=== PATIENT | female | born 1995 | race African-American/Black ===

== ENCOUNTER 2023-09-09 21:11 | Emergency (ER) | payer SELFPAY ==
[2023-09-09 21:09] VITALS: BP 118/75; PULSE 71; RESP 18; TEMP 36.6; O2SAT 100
[2023-09-09 22:30] LABS: Basophils Absolute Auto 0.1 K/mm3 (0.0-0.1); Basophils Percent Auto 1.3 % (0.2-1.2); Eosinophils Absolute Auto 0.1 K/mm3 (0-0.3); Eosinophils Percent Auto 1.6 % (0-4.4); Hematocrit 36.1 % (37.0-47.0); Hemoglobin 12.1 g/dL (12.0-15.0); Immature Granulocyte Absolute 0.01 K/mm3 (0.00-0.031); Immature Granulocyte Percent A 0.1 % (0-0.5); Lymphocytes Absolute Auto 3.21 K/mm3 (0.9-3.2); Lymphocytes Percent Auto 42.5 % (18.3-44.2); Mean Corpuscular HGB Conc 33.5 g/dl (32-36); Mean Corpuscular Hemoglobin 27.6 pg (26-34); Mean Corpuscular Volume 82.2 fl (80-100); Mean Platelet Volume 10.7 fl (7.4-10.4); Monocytes Absolute Auto 0.4 K/mm3 (0.1-0.6); Monocytes Percent Auto 5.4 % (2.6-8.5); Neutrophils Absolute Auto 3.7 K/mm3 (1.3-6.7); Neutrophils Percent Auto 49.1 % (45.5-73.1); Platelet Count Result 289 k/mm3 (150-375); Red Blood Count 4.39 M/mm3 (4.2-5.4); Red Cell Distribution Width 14.7 % (11.5-14.5); White Blood Count 7.6 K/mm3 (4.5-10.0)
[2023-09-09] MEDS: SODIUM CHLORIDE 0.9% IV 2,000 ML 999 ML IV CONT (22:36)
[2023-09-09] MEDS: ONDANSETRON INJ 4 MG/2 ML VIAL IV PUSH (22:37)
[2023-09-09 22:46] LABS: Ethanol 224 mg/dL (<10)
--- NOTE | 2023-09-09 22:52 | PC.NURSE ---
Patient resting at this time. breathing even and non labored. Patient will wake to verbal stimulation. patient able to follow some commands.
--- NOTE | 2023-09-09 22:57 | PC.NURSE ---
Report from LEOBARDO Barth
[2023-09-09 23:00] VITALS: BP 110/64; PULSE 77; RESP 14; O2SAT 98
[2023-09-09 23:18] LABS: Appearance Urine Cloudy (Clear); Bacteria Urine None Seen /hpf; Bilirubin Urine Negative (Negative); Blood Urine Negative (Negative); Color Urine Yellow (Yellow); Glucose Urine UA Negative (Negative); Ketones Urine Negative (Negative); Leukocyte Esterase Ur Negative LEU/UL (Negative); Nitrate Urine Negative (Negative); Non Pathogenic Casts 0-2; Protein Urine Negative (Negative); RBC Urine 0-2 /hpf (0-2); Specific Grav Ur 1.005 (1.001-1.035); Squamous Epithelial Cell Urine None seen /hpf (Few); Urobilinogen Urine 0.2 mg/dL (<2.0); WBC Urine 0-5 /hpf
[2023-09-09 23:20] LABS: Add Urine Microscopic? YES
[2023-09-09 23:32] LABS: Barbiturate Screen Urine Negative (Negative); Benzodiazepines Screen Urine Negative (Negative)
--- NOTE | 2023-09-10 00:08 | PC.NURSE ---
Green top redrawn.
[2023-09-10 00:33] LABS: Amphetamine Screen Urine Negative (Negative); Cannabinoid Screen Urine Positive (Negative); Cocaine Screen Urine Negative (Negative); Methadone Screen Urine Negative (Negative); Opiate Screen Urine Negative (Negative); Phencyclidine Screen Urine Negative (Negative)
[2023-09-10 01:05] LABS: Alanine Aminotransferase 13 U/L (6-35); Alkaline Phosphatase 68 U/L (38-126); Anion Gap 8 mmol/L (8-16); Aspartate Amino Transferase 22 U/L (14-36); Bilirubin,Total 0.3 mg/dL (0.2-1.3); Blood Urea Nitrogen 7 mg/dL (7-17); Carbon Dioxide 24 mmol/L (22-30); Chloride 108 mmol/L (98-107); Estimated CRCL calculation 96 ml/min; Estimated Glomerular Filt Rate > 60; Glucose 87 mg/dL (65-110); Potassium 3.7 mmol/L (3.4-5.0); Sodium 140 mmol/L (137-145)
--- NOTE | 2023-09-10 02:35 | PC.NURSE ---
Pt continues to sleep, equal rise and fall of chest.
--- NOTE | 2023-09-10 03:09 | PC.NURSE ---
Pt awake and clinically sober. Asked for me to call her mom for her. Mom states will come pick her up.
--- NOTE | 2023-09-10 03:14 | ED.ALCOHOL ---
HPI - Alcohol General Chief Complaint: Alcohol Stated Complaint: ETOH, NAUSEA, DRY HEAVING Time Seen by Provider: 09/09/23 21:55 Source: patient Mode of arrival: ambulatory Limitations: no limitations History of Present Illness HPI narrative: 28-year-old female arrives via EMS from home. Patient was out drinking tonight came home vomited and went to sleep mom was concerned and called 911. Patient arrives she is responding to painful stimulus and answering some questions but refused to stay awake and hold a conversation. complaint: alcohol intoxication Related Data Allergies Allergy/AdvReac Type Severity Reaction Status Date / Time No Known Allergies Allergy Verified 09/09/23 22:39 Review of Systems Review of Systems: All systems reviewed & are unremarkable except as noted in HPI and below Exam Const: Other: Patient alert awakes to painful stimuli and will answer short questions. Resp: Effort & Inspection: normal respiratory effort Auscultation: clear to auscultation bilaterally Cardio: Rate: regular rate Rhythm: regular rhythm Course Course Emergency Course: Patient is alert and oriented x4 at this time 0 3:16 AM. Up stable on feet. Called mom for a ride home. Patient is clinically sober. Vital Signs Vital signs: Vital Signs Temperature 97.9 F 09/09/23 21:09 Pulse Rate 71 09/09/23 21:09 Respiratory Rate 18 09/09/23 21:09 Blood Pressure 118/75 09/09/23 21:09 Pulse Oximetry 100 09/09/23 21:09 Oxygen Delivery Room Air 09/09/23 21:09 Temperature 97.9 F 09/09/23 21:09 Pulse Rate 74 09/10/23 04:12 Respiratory Rate 14 09/10/23 04:12 Blood Pressure 109/66 09/10/23 04:12 Pulse Oximetry 98 09/10/23 04:12 Oxygen Delivery Room Air 09/09/23 21:09 MDM - Alcohol MDM Narrative Medical decision making narrative: 28-year-old female HPI as noted. Work-up to include CBC, CMP, urine, drug screen, EtOH, will give IV fluids and Zofran. CBC and CMP without concerning findings urine positive for cannabinoids. No sign of UTI. Blood alcohol level 224. Patient was given IV fluids and Zofran. After a couple hours patient is alert and oriented x4 up and about stable on feet ready to go home. Patient called mom who will take responsibility. Patient be discharged home. Medical Records Attestation: I reviewed the patient's medical records. Lab Data Attestation: I reviewed the patient's lab results. 09/09/23 22:12 09/10/23 00:01 Labs: Lab Results 09/09/23 09/09/23 09/10/23 Range/Units 22:12 23:04 00:01 WBC 7.6 (4.5-10.0) K/mm3 RBC 4.39 (4.2-5.4) M/mm3 Hgb 12.1 (12.0-15.0) g/dL Hct 36.1 L (37.0-47.0) % MCV 82.2 (80-100) fl MCH 27.6 (26-34) pg MCHC 33.5 (32-36) g/dl RDW 14.7 H (11.5-14.5) % Plt Count 289 (150-375) k/mm3 MPV 10.7 H (7.4-10.4) fl Immature Gran % (Auto) 0.1 (0-0.5) % Neut % (Auto) 49.1 (45.5-73.1) % Lymph % (Auto) 42.5 (18.3-44.2) % Robertson % (Auto) 5.4 (2.6-8.5) % Eos % (Auto) 1.6 (0-4.4) % Baso % (Auto) 1.3 H (0.2-1.2) % Lymph # (Auto) 3.21 H (0.9-3.2) K/mm3 Robertson # (Auto) 0.4 (0.1-0.6) K/mm3 Eos # (Auto) 0.1 (0-0.3) K/mm3 Baso # (Auto) 0.1 (0.0-0.1) K/mm3 Abs Immat Gran (auto) 0.01 (0.00-0.031) K/mm3 Absolute Neuts (auto) 3.7 (1.3-6.7) K/mm3 Absolute Nucleated RBC 0.0 (0.0-0.012) K/mm3 Nucleated RBC % 0.0 (0.0-0.2) % Sodium 140 (137-145) mmol/L Potassium 3.7 (3.4-5.0) mmol/L Chloride 108 H (98-107) mmol/L Carbon Dioxide 24 (22-30) mmol/L Anion Gap 8 (8-16) mmol/L BUN 7 (7-17) mg/dL Creatinine 0.60 L (0.7-1.0) mg/dL Estim Creat Clear Calc 96 ml/min Estimated GFR > 60 (59 - ) Glucose 87 (65-110) mg/dL Calcium 8.0 L (8.4-10.2) mg/dL Total Bilirubin 0.3 (0.2-1.3) mg/dL AST 22 (14-36) U/L ALT 13 (6-35) U/L Alkaline Phosphatase 68 (
--- NOTE | 2023-09-10 04:10 | PC.NURSE ---
Mother here to sweet pickle maker pt. Pt dressed and ambulatory with steady gait to waiting room.
[2023-09-10 04:12] VITALS: BP 109/66; PULSE 74; RESP 14; O2SAT 98
== END 2023-09-10 04:16 | disposition home or self-care (01) ==
PROVIDERS: Emergency Provider Nurse Practitioner Family
DX: F10.129 Alcohol abuse with intoxication, unspecified (principal); Y90.7 Blood alcohol level of 200-239 mg/100 ml
CPT/HCPCS: 36415; 80053; 80307; 81001; 85025; 96361; 96374; 99284; J2405; J7030

== ENCOUNTER 2025-07-14 11:10 | Emergency (ER) | payer OTHER, SELFPAY ==
[2025-07-14 11:34] VITALS: BP 116/73; PULSE 81; RESP 16; TEMP 36.6; O2SAT 100
--- NOTE | 2025-07-14 11:58 | ED_ITS ---
HPI - Female Genitourinary General Chief complaint: Urogenital-Female Stated complaint: UTI SYMPTOMS Time Seen by Provider: 07/14/25 11:58 Source: patient Mode of arrival: ambulatory Limitations: no limitations History of Present Illness HPI Narrative: 30-year-old female presents with complaint of suprapubic pain, urinary urgency, dysuria for 5 days. Afebrile. No fever, chills or nausea. Denies concern for . All systems reviewed and negative except as noted above. Related Data Home Medications ?Medication ?Instructions ?Recorded ?Confirmed ?Last Taken ?Type estradiol-dienogest 3 mg/2 mg-2 tablet 07/14/25 Unknown History mg/2 mg-3 mg/1 mg tablet (Natazia) Allergies Allergy/AdvReac Type Severity Reaction Status Date / Time No Known Allergies Allergy Verified 07/14/25 11:22 PMFSH Comments At time of signature, agree with nursing past medical, surgical, social and family history. There is no relevant family history pertinent to the presenting complaint. Exam Narrative: GENERAL: This is a well-nourished, well-developed patient, in no apparent distress. HEAD: normocephalic, atraumatic. EYES: PERRL. Sclera clear/white. Vision is grossly intact. EARS: External ears normal NOSE: External nose normal NECK: Neck supple, non-tender without lymphadenopathy, masses or thyromegaly. CARDIOVASCULAR: Regular rate and rhythm without murmurs, gallops, or rubs. RESPIRATORY: Clear to auscultation. Breath sounds equal bilaterally. No wheezes, rales, or rhonchi. SKIN: warm, Dry, intact with no suspicious lesions or rash, good texture and turgor. NEURO: awake, alert, and oriented to person, place and time. There were no obvious focal neurologic abnormalities. EXTREMITIES: No joint tenderness, effusion, or edema noted. Course Course Level of Care: Express Care Visit Vital Signs Vital signs: Vital Signs Temperature 36.6 C 07/14/25 11:34 Pulse Rate 81 07/14/25 11:34 Respiratory Rate 07/14/25 11:34 Blood Pressure 116/73 07/14/25 11:34 Pulse Oximetry 100 07/14/25 11:34 Temperature 36.6 C 07/14/25 11:34 Pulse Rate 81 07/14/25 11:34 Respiratory Rate 16 07/14/25 11:34 Blood Pressure 116/73 07/14/25 11:34 Pulse Oximetry 100 07/14/25 11:34 Reviewed MDM - Female Genitourinary MDM Narrative Medical decision making narrative: Will treat with antibiotic for urinary tract infection. Patient is well- appearing, nontoxic. Agrees with plan of care. Differential Diagnosis Differential diagnosis: Likely urinary tract infection Discharge Plan Discharge Clinical Impression: Urinary tract infection Patient Disposition: Home Condition: Stable Instructions: Antibiotic Form, Urinary Tract Infection in Women (ED) Additional Instructions: Take antibiotic as prescribed until gone. May take sred-svy-nioyzep azo as directed on packaging to treat urinary symptoms. Drink at least 64 oz of water a day. See your doctor if symptoms are not improving. If you have severe pain, fever, vomiting go to the ER. Patient Language: Sami Prescriptions: New amoxicillin-pot clavulanate [Augmentin] 500-125 mg tablet 1 tablet PO BID 5 Days Qty: 10 0RF No Action Natazia 3 mg/2 mg-2 mg/ 2 mg-3 mg/1 mg tablet Follow-up/Referrals: PHYSICIAN,ORTHODONTIST SMALL BUSINESS OWNER [Primary Care Provider] - Time of Disposition: 12:00
[2025-07-14 12:08] LABS: EDUAAPPEAR Clear; EDUABILI Negative (Negative); EDUABLOOD 1+ (Negative); EDUACOLOR1 Dark; EDUAGLUCOSE Negative (Negative); EDUAKETONE 2+ (Negative); EDUALEUKO 1+ (Negative); EDUANITRATE Negative (Negative); EDUAPH 6.0; EDUAPROTEIN 1+ (Negative); EDUASPGRAVITY 1.025; EDUAUROBILI 0.2
== END 2025-07-14 12:02 | disposition home or self-care (01) ==
PROVIDERS: Emergency Provider Nurse Practitioner Family
DX: N39.0 Urinary tract infection, site not specified (principal)
CPT/HCPCS: 81003; 87086; 99213; G0463

== ENCOUNTER 2025-07-15 23:35 | Emergency (ER) | payer OTHER, SELFPAY ==
[2025-07-15 23:35] VITALS: BP 124/76; PULSE 106; RESP 16; TEMP 36.8; O2SAT 99
--- OUTSIDE RECORDS SUMMARY | 2025-07-15 23:36 | XMS_ITS | Clinical Summary ---
Author Organization [facility] Address [address] [place] [address] Phone Care Team Providers Care Machine Adjuster Leader Case Trim Name Role Phone Lucia Hernandez Charisse VANN, HOGSHEAD WRECKER Primary Care Provider [phone] Kaye Lima APRN, HOGSHEAD WRECKER Unavailable [phone] Allergies No known active allergies Medications No known medications Active Problems No known active problems Encounters Date Type Department Care Team Description 2025 Results Follow-Up [facility] [address] [place] [address] Kaye Lima APRN, HOGSHEAD WRECKER PATHOLOGY SURGICAL, PATHOLOGY SURGICAL 05/15/2025 8:00 AM CDT Procedure Visit [facility] [address] [place] [id number] Kaye Lima APRN, HOGSHEAD WRECKER Atypical squamous cells cannot exclude high grade squamous intraepithelial lesion on cytologic smear of cervix (ASC-H) (Primary Dx); Former tobacco use Discharge Disposition: Discharged to home or Selfcare 05/15/2025 Travel 05/02/2025 Results Follow-Up [facility] [address] [place] [address] Kaye Lima APRN, HOGSHEAD WRECKER HUMAN PAPILLOMA VIRUS (HPV) 05/01/2025 8:30 AM CDT Office Visit [facility] [address] [place] [address] Kaye Lima, ROAD BUILDER, HOGSHEAD WRECKER Encounter for gynecological examination (Primary Dx); Atypical squamous cells cannot exclude high grade squamous intraepithelial lesion on cytologic smear of cervix (ASC-H) Discharge Disposition: Discharged to home or Selfcare 05/01/2025 Travel from Last 3 Months Immunizations Immunization Administration Dates Next Due DTAP VACCINE 08/10/2001, 8,1997,09/13,1997 Human Papillomavirus (HPV) 9 -valent Vaccine 01/25/2025 Meningococcal MCV4O 06/21/2012 Meningococcal Vaccine 09/12/2014 Varicella Vaccine Live 09/12/2014,1998 Social History Tobacco Use Types Packs/Day Years Used Date Smoking Tobacco: Never Passive Smoke Exposure: Never Smokeless Tobacco: Never Tobacco Cessation:Counseling Given: Not Answered Alcohol Use Standard Drinks/Week Comments Yes 0 (1 standard drink = 0.6 oz pur e alcohol) PHQ-2 Answer Date Recorded Total Score - Questions 1-9 0 12/31 Sexually Active Control Partners Comments Not Currently Comments No Sex and Gender Information Value Date Recorded Sex Assigned at Not on file Legal Sex Female 4:00 PM OUTSIDE MACHINIST HELPER Gender Identity Not on file Sexual Orientation Not on file Last Filed Vital Signs Vital Sign Reading Time Taken Comments Blood Pressure 98/63 05/15/2025 8:20 AM CDT Pulse 78 05/15/2025 8:20 AM CDT Temperature 36.1 C (97 F) 01/22/2025 7:54 AM OUTSIDE MACHINIST HELPER Respiratory Rate 18 05/15/2025 8:20 AM CDT Oxygen Saturation 100% 05/15/2025 8:20 AM CDT Inhaled Oxygen Concentration - - Weight 66.7 kg (147 lb) 05/15/2025 8:20 AM CDT Height 157.5 cm (5' 2) 05/15/2025 8:20 AM CDT Body Mass Index 26.89 05/15/2025 8:20 AM CDT Plan of Treatment Health Maintenance Due Date Last Done Comments Hepatitis C Virus (HCV) Screening 1997 DTaP/Tdap/Td Immunization (6 - Tdap) 2008 08/10/2001, 08/27/1998, 1997, Additional history exists Hepatitis B Immunization (1 of 3 - 19+ 3-dose series) 2016 SARS-COV-2 Immunization ( - 2023- season) 2024 Human Papillomavirus (HPV) Immunization (2 - 3-dose SCDM series) 02/22/2025 01/25/2025 Influenza Immunization (#1) 2025 Pap Smear 01/22/2028 01/22/2025 Respiratory Syncytial Virus (RSV) Immunization (Adult) (1 - 1-dose 75+ series) 2072 Meningococcal Immunization (ACWY) Completed 09/12/2014, 06/21/2012 Pneumococcal Immunization Combined Aged Out No longer eligible based on patient's age to complete this topic Rotavirus Immunization Aged Out No lo nger eligible based on patient's age to complete this topic Procedures Procedure Name Priority Date/Time Associated Diagnosis Comments PATHOLOGY SURGICAL Routine 05/15/2025 11 :27 AM CDT Atypical squamous cells cannot exclude high grade squamous intraepithelial lesion on cytologic smear of cervix (ASC-H) PATHOLOGY SURGICAL Routine 05/15/2025 9: 57 AM CDT Atypical squamous cells cannot exclude high grade squamous intraepithelial lesion on cytologic smear of cervix (ASC-H) HUMAN PAPILLOMA VIRUS (HPV) Routine 05/01/2025 9:17 AM CDT Encounter for gynecological examination Atypical squamous cells cannot exclude high grade squamous intraepithelial lesion on cytologic smear of cervix (ASC-H) PATHOLOGY CYTOLOGY SALES REPRESENTATIVE RAW FIBERS Routine 01/22/2025 9:08 AM OUTSIDE MACHINIST HELPER Pap smear, as part of routine gynecological examination from Last 3 Months or Most Recently Relevant to Health Maintenance Results * PATHOLOGY SURGICAL (05/15/2025 11:27 AM CDT) Only the most recent of2 resultswithin the time period is included. Case Report Surgical Pathology Report Case: [id number] Authorizing Provider: Kaye Lima APRN, HOGSHEAD WRECKER Collected: 05/15/2025 09:57 AM Ordering Location: [facility] - Received: 05/15/2025 09:57 AM Obstetrics & Gynecology [facility] Pathologist: Chapis Jett MD PhD Specimens: A) - Cervix/Endocervix B) - Cervix/Endocervix, ECC 2025 3:00 PM CDT [facility] FINAL DIAGNOSIS A. Cervix/endocervix, colposcopy with biopsy: - High-grade squamous intraepithelial lesion (HSIL) (see comment) B. Endocervical curettage: - Small poorly oriented squamous epithelium with dysplasia, cannot rule out high-grade squamous intraepithelial lesion (HSIL) 2025 3:00 PM CDT [facility] at 1500 CDT Comment In both specimens, P16 highlights the neoplasm epithelium. Specimen A also has low-grade squamous intraepithelial lesion. Some nests of lesion cells are present in the stroma, they may represent tangential cut. 2025 3:00 PM CDT [facility] Pre-Operative Diagnosis Atypical squamous cells cannot exclude high grade squamous intraepithelial lesion on cytologic smear of cervix 2025 3:00 PM CDT [facility] Gross Description A. The specimen presents in two formalin containers for gross and microscopic examination labeled with the patient's name, Carmelina Recinos. Part A is designated as cervix colposcopy with biopsy. The specimen consists of several small fragments of dodge-white tissue ranging in size from less 0.1 up to 0.1 cm in total dimensions. The specimen is submitted in its entirety in cassette A1. B. ECC Part B is designated as colposcopy with endocervical curettage. The specimen consists of several small fragments of pink-dodge to mucoid tissue measuring an aggregate of 1.0 x 1.0 x 0.2 cm. The specimen is submitted in its entirety in cassette B1. Total time of fixation is 12 hours, 10 minutes. MH/sb 2025 3:00 PM CDT [facility] Microscopic Description Microscopic examination was performed which supports the final diagnosis. All control tissues stained appropriately. 2025 3:00 PM CDT [facility] Other CERVIX UTERI STRUCTURE / Unknown Non-Phlebotomy Collection / Unknown 05/15/2025 11:27 AM CDT 05/15/2025 11:27 AM CDT Specimen of unknown material (specimen) CERVIX UTERI STRUCTURE / Unknown 05/15/2025 9:57 AM CDT 05/15/2025 9:57 AM CDT us Kaye Lima ROAD BUILDER, HOGSHEAD WRECKER PATHOLOGY/CYTOLOGY ORDER SUMAYA Final Result [facility] [address] [place] [address] * (ABNORMAL) HUMAN PAPILLOMA VIRUS (HPV) (05/01/2025 9:17 AM CDT) HPV TYPE 16 NEGATIVE NEGATIVE 05/02/2025 11:34 AM CDT [facility] Comment: A negative high-risk HPV result does not exclude the possibility of future cytologic HSIL or underlying CIN2-3 or cancer. The presence of PCR inhibitors may cause false negative or invalid results. If concentrations of whole blood in the sample exceed 10% (dark red or brown coloration) in PreservCyt solution, there is a likelihood of obtaining a false-negative result. HPV TYPE 18 NEGATIVE NEGATIVE 05/02/2025 11:34 AM CDT [facility] Comment: A negative high-risk HPV result does not exclude the possibility of future cytologic HSIL or underlying CIN2-3 or cancer. The presence of PCR inhibitors may cause false negative or invalid results. If concentrations of whole blood in the sample exceed 10% (dark red or brown coloration) in PreservCyt solution, there is a likelihood of obtaining a false-negative result. HPV OTHER HIGH RISK TYPES, PCR POSITIVE(A) NEGATIVE 05/02/2025 11:34 AM CDT [facility] Comment: Positive for one or more of the following Other High Risk HPV types: 31, 33, 35, 39, 45, 51, 52, 56, 58, 59, 66, and 68. False-positive results have been reported with molecular assays. If these positive results are discordant with clinical/cytohistologic findings, repeat testing may be considered after an appropriate interval. HPV ORDER BE USED FOR SCREENING OR DIAGNOSTIC DIAGNOSTIC 05/02/2025 11:34 AM CDT [facility] Other Non-Phlebotomy Collection / Unknown 05/01/2025 9:17 AM CDT 05/01/2025 9:17 AM CDT Narrative [facility] - 05/02/2025 11:34 AM CDT This test was performed using NESHA 5800 Real Time PCR. us Kaye Lima ROAD BUILDER, HOGSHEAD WRECKER LAB SEND OUTS Final Re sult [facility] [address] [place] [address], [facility] [address] [place] [address] * PATHOLOGY CYTOLOGY SALES REPRESENTATIVE RAW FIBERS (01/22/2025 9:08 AM OUTSIDE MACHINIST HELPER) SPECIMEN ADEQUACY Satisfactory for evaluation. Endocervical/transf ormation zone component is present. 02/02/2025 10:02 AM [facility] GENERAL CATEGORY EPITHELIAL CELL ABNORMALITY. 02/02/2025 10:02 AM [facility] DESCRIPTIVE DIAGNOSIS Low grade squamous intraepithelial lesion. 02/02/2025 10:02 AM [facility] at 1002 OUTSIDE MACHINIST HELPER OTHER FINDINGS A high grade lesion cannot be excluded. 02/02/2025 10:02 AM [facility] Automated Examination Analysis of this sample has been assisted by an automated imaging and review system ([employer]in[employer] Imaging System, [employer], [place], [place]). This case is further evaluated and finalized by a hide dropper and/or pathologist. 02/02/2025 10:02 AM [facility] Disclaimer The PAP smear is a screening test designed to detect cancerous or precancerous cells of the uterine cervix. It is one of the best means available for detection of cervical cancer but still carries an inherent false-negative rate. The consequences of a false-negative PAP result can be minimized by adhering to current screening guidelines. The following are general guidelines recommended by the ACS, ASCP, ASCCP, and ACOG: PAP testing is recommended every three years for women 21-29, Co-Testing, a PAP test in conjunction with an HPV (Human Papillomavirus) test for women ages 30-65, and no PAP or HPV testing for women under the age of 21 or older than 65 unless clinically indicated. 02/02/2025 10:02 AM OUTSIDE MACHINIST HELPER [facility] Case Report Gynecologic Cytology Report Case: [id number] Authorizing Provider: Lucia Hernandez APRN, CNP Collected: 01/22/2025 09:08 AM Ordering Location: [facility] Received: 01/22/2025 09:08 AM Group - Primary [facility] - [facility] Screen: Debbie Lima Pathologist: Collins Álvarez MD Specimen: TP Screen, Cervix/Vaginal 02/02/2025 10:02 AM OUTSIDE MACHINIST HELPER [facility] Other SPECIMEN FROM CERVIX OR VAGINA / Unknown Non-Phlebotomy Collection / Unknown 01/22/2025 9:08 AM OUTSIDE MACHINIST HELPER 01/22/2025 9:08 AM OUTSIDE MACHINIST HELPER us Lucia Hernandez APRN, CNP PATHOLOGY/CYTOLOGY ORDERAB LES Final Result [facility] [address] [place] [address], [place] from Last 3 Months or Most Recently Relevant to Health Maintenance Insurance MEDICAID [place] Care Teams Machine Adjuster Leader Case Trim Relationship Specialty Start Date End Date Lucia Hernandez APRN, CNP [address] [place] [address] PCP - General Certified Nurse Practitioner 01/29/25 Kaye Lima, ROAD BUILDER, HOGSHEAD WRECKER [address] [place] [address] Nurse Practitioner Advanced Practice Nurse 04/13/25
--- OUTSIDE RECORDS SUMMARY | 2025-07-15 23:36 | XMS_ITS | Continuity of Care Document ---
Author Name Eliza Cano Address [address] [place] [address] Organization Unknown Address [address] [place] [address] Medications No known medications Problems No known problems
--- OUTSIDE RECORDS SUMMARY | 2025-07-15 23:36 | XMS_ITS | Clinical Summary ---
Author Organization [facility] Address [address] [place] [id number] Care Team Providers Care Lead Game Designer Name Role Phone Unknown, Notinfile Primary Care Provider Unavail able Allergies No known active allergies Medications methocarbamoL (ROBAXIN) 500 mg tablet Take 1 tablet (500 mg total) by mouth 2 (two) times a day 20 tablet 06/25/2023 Active Social History Tobacco Use Types Packs/Day Years Used Date Smoking Tobacco: Never Assessed Personal Safety Answer Date Recorded Getting School Help Needed Not on file 07/22 Comments Unknown Sex and Gender Information Value Date Recorded Sex Assigned at Not on file Legal Sex Female 12:15 PM CDT Gender Identity Not on file Sexual Orientation Not on file Last Filed Vital Signs Vital Sign Reading Time Taken Comments Blood Pressure 118/67 06/25/2023 2:55 PM CDT Pulse 79 06/25/2023 2:55 PM CDT Temperature 36.6 C (97.8 F) 06/25/2023 2:55 PM CDT Respiratory Rate 16 06/25/2023 2:55 PM CDT Oxygen Saturation 99% 06/25/2023 2:55 PM CDT Inhaled Oxygen Concentration - - Weight 63.5 kg (140 lb) 06/25/2023 12:51 PM CDT Height 157.5 cm (5' 2) 06/25/2023 12:51 PM CDT Body Mass Index 25.61 06/25/2023 12:51 PM CDT Plan of Treatment Health Maintenance Due Date Last Done Comments Cervical Cancer Screening 1997 Depression Screening 1997 Hepatitis C Screening 1997 Varicella Vaccines (2 of 2 - 2-dose childhood series) 2001 1998 Regular Well Visit/Exam 18-64 2015 HPV Vaccines (1 - 3-dose SCDM series) 2024 Influenza Vaccine (#1) 2025 09/08/2021 DTaP/Tdap/Td Vaccine (8 - Td or Tdap) 07/30/2031 07/30/2021, 06/21/2012, 08/10/2001, Additional history exists Hepatitis B Screening Completed 02/19/1998 , 1997, 1997 Pneumococcal vaccine <65 Aged Out No longer eligible based on patient's age to complete this topic Insurance Care Teams Lead Game Designer Relationship Specialty Start Date End Date Unknown, Notinfile PCP - General 06/25/23
--- OUTSIDE RECORDS SUMMARY | 2025-07-15 23:36 | XMS_ITS | Clinical Summary ---
Author Organization [facility] Address [address] [place] [address] Care Team Providers Care Skin Diver Name Role Phone Unavailable Primary Care Provider Unavailabl e Source Comments [facility],non-owned Affiliates and Associated Physician Practices is amultiple site organization consisting of ambulatory clinics and hospital sitesin [place], [place], [place] and [place]. This disclosure is being madepursuant to the Care Everywhere program and may not contain all information available regarding this patient. Last updated 18.[facility] Encounters Date Type Department Care Team Description 06/26/2025 Telephone [facility] - MAT MACHINE TENDER [address] [facility] [address] [facility] [address] [place] [phone] Grisel Park MD Future Appointment 06/25/2025 Telephone [facility] - MAT MACHINE TENDER [address] [facility] [address] [place] [address] Grisel Park MD Establish Care from Last 3 Months Social History Tobacco Use Types Packs/Day Years Used Date Smoking Tobacco: Never Assessed Comments Unknown Sex and Gender Information Value Date Recorded Sex Assigned at Not on file Legal Sex Female 3:32 PM CDT Gender Identity Not on file Sexual Orientation Not on file Plan of Treatment Health Maintenance Due Date Last Done Comments HIV SCREENING 2012 HEPATITIS C SCREENING 05/12/2015 DTAP/TDAP/TD VACCINES (1 - Tdap) 2016 HEPATITIS B VACCINE (1 of 3 - 19+ 3-dose series) 2016 HPV VACCINE (1 - 3-dose SCDM series) 2024 COVID-19 VACCINE ( - 2023-2 5 season) 2024 12/24/2021, 12/03/2021, 12/01/2021 DEPRESSION SCREENING 11/29/2024 INFLUENZA VACCINE (#1) 2025 09/08/2021 PAP SMEAR 01/22/2028 01/22/2025 ZOSTER VACCINE (1 of 2) 2047 HIB VACCINE Aged Out No longer eligi ble based on patient's age to complete this topic MENINGOCOCCAL (Group B) VACCINE SHARED DECISION-MAKING Aged Out No longer eligible based on patient's age to complete this topic MENINGOCOCCAL GROUPS A/C/Y/W VACCINE Aged Out No longer eligible b ased on patient's age to complete this topic PNEUMOCOCCAL VACCINE Aged Out No long er eligible based on patient's age to complete this topic Insurance MEDICAID - [place]
--- OUTSIDE RECORDS SUMMARY | 2025-07-15 23:36 | XMS_ITS | Continuity of Care Document ---
[facility] Address [address] [place] [address] Organization Unknown Address [address] [place] [address] Medications No known medications Problems No known problems
--- OUTSIDE RECORDS SUMMARY | 2025-07-15 23:36 | XMS_ITS | Continuity of Care Document ---
Author Name Eliza Cano Address [address] [place] [address] Organization Unknown Address [address] [place] [address] Medications No known medications Problems No known problems
[2025-07-16 04:49] VITALS: BP 132/76; PULSE 90; RESP 22; TEMP 36.8; O2SAT 100
[2025-07-16 04:56] LABS: BEDSIDEPREGUCG Negative (Negative)
[2025-07-16] MEDS: oxyCODONE HCL (*CRX) 5 MG TAB IR PO (05:42)
[2025-07-16] MEDS: LORazepam (*CRX) 0.5 MG TABLET PO (05:43)
--- OUTSIDE RECORDS SUMMARY | 2025-07-16 05:55 | XMS_ITS | Clinical Summary ---
Author Organization [facility] Address [address] [place] [id number] Care Team Providers Care Framing Mill Operator Helper Name Role Phone Unknown, Notinfile Primary Care [...] to complete this topic Insurance Care Teams Framing Mill Operator Helper Relationship Specialty Start Date End Date Unknown, Notinfile PCP - General 06/25/23
--- OUTSIDE RECORDS SUMMARY | 2025-07-16 05:55 | XMS_ITS | Clinical Summary ---
Author Organization [facility] Address [address] [place] [address] Care Team Providers Care Cigarette Tipper Name Role Phone Unavailable Primary Care Provider Unavailabl e Source Comments [facility],non-owned Affiliates and Associated Physician Practices is amultiple site organization consisting of ambulatory clinics and hospital sitesin [place], [place], [place] and [place]. This disclosure is being madepursuant to the Care Everywhere program and may not contain all information available regarding this patient. Last updated 18.[facility] Encounters Date Type Department Care Team Description 06/26/2025 Telephone [facility] - PUBLIC RELATIONS [address] [facility] [address] [place] [phone] Grisel Park MD Future Appointment 06/25/2025 Telephone [facility] - PUBLIC RELATIONS [address] [facility] [address] [place] [address] Grisel Park MD Establish Care [...]
--- OUTSIDE RECORDS SUMMARY | 2025-07-16 05:55 | XMS_ITS | Clinical Summary ---
Author Organization [facility] Address [address] [place] [address] Phone Care Team Providers Care Secondary School Teacher Name Role Phone Lucia Hernandez Charisse VANN, GANG DRILL PRESS OPERATOR Primary Care Provider [phone] Kaye Lima APRN, GANG DRILL PRESS OPERATOR Unavailable [phone] Allergies No known active allergies Medications No known medications Active Problems No known active problems Encounters Date Type Department Care Team Description 2025 Results [facility]Up [facility] [address] [place] [address] Kaye Lima APRN, GANG DRILL PRESS OPERATOR PATHOLOGY SURGICAL, PATHOLOGY SURGICAL 05/15/2025 8:00 AM CDT Procedure Visit [facility] [address] [place] [phone] Kaye Lima APRN, GANG DRILL PRESS OPERATOR Atypical squamous cells cannot exclude high grade squamous intraepithelial lesion on cytologic smear of cervix (ASC-H) (Primary Dx); Former tobacco use Discharge Disposition: Discharged to home or Selfcare 05/15/2025 Travel 05/02/2025 Results [facility]Up [facility] [address] [place] [address] Kaye Lima APRN, GANG DRILL PRESS OPERATOR HUMAN PAPILLOMA VIRUS (HPV) 05/01/2025 8:30 AM CDT Office Visit [facility] [address] [facility] [place] [address] Kaye Lima, WELL LOGGING MUD ANALYSIS CAPTAIN, GANG DRILL PRESS OPERATOR Encounter for gynecological examination (Primary Dx); Atypical [...] on file Legal Sex Female 4:00 PM FINISHER HAND Gender Identity Not on file Sexual Orientation Not on file Last Filed Vital Signs Vital Sign Reading Time Taken Comments Blood Pressure 98/63 05/15/2025 8:20 AM CDT Pulse 78 05/15/2025 8:20 AM CDT Temperature 36.1 C (97 F) 01/22/2025 7:54 AM FINISHER HAND Respiratory Rate 18 05/15/2025 8:20 AM CDT [...] cytologic smear of cervix (ASC-H) PATHOLOGY CYTOLOGY LEAD JAVA SOFTWARE ENGINEER Routine 01/22/2025 9:08 AM FINISHER HAND Pap smear, as part of routine gynecological examination from Last 3 Months or Most Recently Relevant to Health Maintenance Results * PATHOLOGY SURGICAL (05/15/2025 11:27 AM CDT) Only the most recent of2 resultswithin the time period is included. Case Report Surgical Pathology Report Case: [id number] Authorizing Provider: Kaye Lima APRN, GANG DRILL PRESS OPERATOR Collected: 05/15/2025 09:57 AM Ordering Location: [facility] - Received: 05/15/2025 09:57 AM Obstetrics & Gynecology [facility] Pathologist: Chapis Jett MD PhD Specimens: A) - Cervix/Endocervix B) - Cervix/Endocervix, ECC 2025 3:00 PM CDT [facility] FINAL DIAGNOSIS A. Cervix/endocervix, colposcopy with biopsy: - High-grade squamous intraepithelial lesion (HSIL) (see comment) B. Endocervical curettage: - Small poorly oriented squamous epithelium with dysplasia, cannot rule out high-grade squamous intraepithelial lesion (HSIL) 2025 3:00 PM CDT [facility] at 1500 CDT Comment In both specimens, P16 highlights the neoplasm epithelium. Specimen A also has low-grade squamous intraepithelial lesion. Some nests of lesion cells are present in the stroma, they may represent tangential cut. 2025 3:00 PM CDT [facility] Pre-Operative Diagnosis Atypical squamous cells cannot exclude high grade squamous intraepithelial lesion on cytologic smear of cervix 2025 3:00 PM CDT [facility] Gross Description A. The specimen [...] 10 minutes. MH/sb 2025 3:00 PM CDT [facility] Microscopic Description Microscopic examination was performed which supports the final diagnosis. All control tissues stained appropriately. 2025 3:00 PM CDT [facility] Other CERVIX UTERI STRUCTURE / Unknown Non-Phlebotomy Collection / Unknown 05/15/2025 11:27 AM CDT 05/15/2025 11:27 AM CDT Specimen of unknown material (specimen) CERVIX UTERI STRUCTURE / Unknown 05/15/2025 9:57 AM CDT 05/15/2025 9:57 AM CDT us Kaye Lima WELL LOGGING MUD ANALYSIS CAPTAIN, GANG DRILL PRESS OPERATOR PATHOLOGY/CYTOLOGY ORDER SUMAYA Final Result [facility] [address] [place] [address] * (ABNORMAL) HUMAN PAPILLOMA VIRUS (HPV) (05/01/2025 9:17 AM CDT) HPV TYPE 16 NEGATIVE NEGATIVE 05/02/2025 11:34 AM CDT [facility] Comment: A negative high-risk HPV result does [...] 18 NEGATIVE NEGATIVE 05/02/2025 11:34 AM CDT [facility] Comment: A negative high-risk HPV result does [...] PCR POSITIVE(A) NEGATIVE 05/02/2025 11:34 AM CDT [facility] Comment: Positive for one or more of [...] OR DIAGNOSTIC DIAGNOSTIC 05/02/2025 11:34 AM CDT [facility] Other Non-Phlebotomy Collection / Unknown 05/01/2025 9:17 AM CDT 05/01/2025 9:17 AM CDT Narrative [facility] - 05/02/2025 11:34 AM CDT This test was performed using NESHA 5800 Real Time PCR. us Kaye Lima WELL LOGGING MUD ANALYSIS CAPTAIN, GANG DRILL PRESS OPERATOR LAB SEND OUTS Final Re sult [facility] [address] [place] [address], [facility] [address] [place] [address] * PATHOLOGY CYTOLOGY LEAD JAVA SOFTWARE ENGINEER (01/22/2025 9:08 AM FINISHER HAND) SPECIMEN ADEQUACY Satisfactory for evaluation. Endocervical/transf ormation zone component is present. 02/02/2025 10:02 AM [facility] GENERAL CATEGORY EPITHELIAL CELL ABNORMALITY. 02/02/2025 10:02 AM [facility] DESCRIPTIVE DIAGNOSIS Low grade squamous intraepithelial lesion. 02/02/2025 10:02 AM [facility] at 1002 FINISHER HAND OTHER FINDINGS A high grade lesion cannot be excluded. 02/02/2025 10:02 AM [facility] Automated Examination Analysis of this sample has been assisted by an automated imaging and review system (Thinprep Imaging System, [employer], [place], [place]). This case is further evaluated and finalized by a secondary english teacher and/or pathologist. 02/02/2025 10:02 AM [facility] Disclaimer The PAP smear is [...] 65 unless clinically indicated. 02/02/2025 10:02 AM FINISHER HAND [facility] Case Report Gynecologic Cytology Report Case: [id number] Authorizing Provider: Lucia Hernandez APRN, CNP Collected: 01/22/2025 09:08 AM Ordering Location: [facility] [place] [facility] Received: 01/22/2025 09:08 AM Group - Primary Care - [facility] Screen: Debbie Lima Pathologist: Collins Álvarez MD Specimen: TP Screen, Cervix/Vaginal 02/02/2025 10:02 AM FINISHER HAND [facility] Other SPECIMEN FROM CERVIX OR VAGINA / Unknown Non-Phlebotomy Collection / Unknown 01/22/2025 9:08 AM FINISHER HAND 01/22/2025 9:08 AM FINISHER HAND us Lucia Hernandez APRN, CNP PATHOLOGY/CYTOLOGY ORDERAB LES Final Result [facility] [address] [place] [address], [place] from Last 3 Months or Most Recently Relevant to Health Maintenance Insurance MEDICAID [place] Care Teams Secondary School Teacher Relationship Specialty Start Date End Date Lucia Hernandez APRN, CNP [address] [place] [address] PCP - General Certified Nurse Practitioner 01/29/25 Kaye Lima, WELL LOGGING MUD ANALYSIS CAPTAIN, GANG DRILL PRESS OPERATOR [address] [place] [address] Nurse Practitioner Advanced Practice Nurse 04/13/25
--- NOTE | 2025-07-16 06:03 | ED.WOUNDLAC ---
HPI - Wound/Laceration General Chief Complaint: Wound/Laceration Stated Complaint: cyst on vagina Time Seen by Provider: 07/16/25 05:21 History of Present Illness HPI narrative: 30-year-old female presenting with a cyst on her vagina that has been increasing in size for 2 days and painful. She has a history of a Bartholin's cyst requiring incision and drainage 2 years ago. Feels similar today. No other symptoms. No fever, chills or systemic signs of infection. Was otherwise in her normal state of health. Has tried some heat and cold compresses without any significant pain relief. No discharge or bleeding. Related Data Home Medications ?Medication ?Instructions ?Recorded ?Confirmed ?Last Taken ?Type estradiol-dienogest 3 mg/2 mg-2 tablet 07/14/25 Unknown History mg/2 mg-3 mg/1 mg tablet (Natazia) Allergies Allergy/AdvReac Type Severity Reaction Status Date / Time No Known Allergies Allergy Verified 07/14/25 11:22 Review of Systems Review of Systems: As reviewed above in HPI Exam Narrative: GENERAL: [Well-appearing, well-nourished, and in no acute distress.] HEAD: [Normocephalic, atraumatic.] EYES: [PERRLA and EOMI.] ENT: Nares clear, no rhinorrhea or epistaxis. Mucous membranes moist. NECK: Supple. CHEST: [Clear to auscultation. No respiratory distress.] HEART: [Regular rate and rhythm]. No murmur heard. [Normal peripheral pulses.] ABDOMEN: [Soft, nondistended], [nontender], [No rigidity or guarding] : Left-sided Bartholin's cyst and abscess with fluctuance palpable mass with tenderness to palpation and some mild erythema. No purulent drainage. EXTREMITIES: Normal range of motion. [No edema.] SKIN: Warm, dry, no rash. NEURO: [No focal deficits]. Alert and oriented [x3.] PSYCH: [Normal mood and affect.] Course Vital Signs Vital signs: Vital Signs Temperature 36.8 C 07/15/25 23:35 Pulse Rate 106 H 07/15/25 23:35 Respiratory Rate 16 07/15/25 23:35 Blood Pressure 124/76 07/15/25 23:35 Pulse Oximetry 99 07/15/25 23:35 Oxygen Delivery Room Air 07/15/25 23:35 Temperature 36.8 C 07/16/25 04:49 Pulse Rate 90 07/16/25 04:49 Respiratory Rate 22 H 07/16/25 04:49 Blood Pressure 132/76 07/16/25 04:49 Pulse Oximetry 100 07/16/25 04:49 Oxygen Delivery Room Air 07/15/25 23:35 Procedures Abscess I/D bartholin's gland: Date of Incision: 07/16/25 Time of Incision: 06:15 Side (if applicable): left Sedation/analgesia: other (Ativan and oxycodone) Local Anesthetic: lidocaine 2% Amount of anesthesia used (mL): 3 Technique: incised with #11 blade Amount of fluid expressed (mL): 3 Irrigation: No Packing used?: none and Word catheter (Unable to placed word catheter) I&D Results: Pus and Blood MDM - Wound/Laceration MDM Narrative Medical decision making narrative: 30-year-old female presenting with a cyst on her vagina that has been increasing in size for 2 days and painful. She has a history of a Bartholin's cyst requiring incision and drainage 2 years ago. Feels similar today. No other symptoms. No fever, chills or systemic signs of infection. Was otherwise in her normal state of health. Has tried some heat and cold compresses without any significant pain relief. No discharge or bleeding. Chaperoned genitourinary examination revealed Left-sided Bartholin's cyst and abscess with fluctuance palpable mass with tenderness to palpation and some mild erythema. No purulent drainage. Incision and drainage conducted after consent. Small amount of purulence and minimal blood was returned. Incision left open for drainage. Attempted Word catheter placement unsuccessfully. Patient placed on Bactrim and sent with 7 day course and referral back to her OBGYN for definitive care and re-evaluation. Medical Records Attestation: I reviewed the patient's medical records. Lab Data Attestation: I reviewed the patient's lab results. Labs: Lab Results 07/16/25 Range/Units 04:54 POC Urine HCG, Qual Negative (Negative) Discharge Plan Discharge Clinical Impression: Abscess of Bartholin gland Patient Disposition: Home Condition: Stable Instructions: Antibiotic Form, Bartholin Cyst (ED), Incision and Drainage (ED) Additional Instructions: You had an incision and drainage of a Bartholin's cysts. We will treat this with antibiotics and pain control medications. You can apply cold or warm compresses for pain relief. We did not leave a catheter in given the shallow depth of the abscess formation itself. Follow-up with OBGYN. Return with any emergent concerns but take the antibiotics twice daily for the next 7 days. Patient Language: Belarusian Prescriptions: New hydrocodone-acetaminophen 5-325 mg tablet 1 tablet PO Q8H PRN (Reason: pain) Qty: 14 0RF sulfamethoxazole-trimethoprim [Bactrim DS] 800-160 mg tablet 1 tablet PO Q12H Qty: 14 0RF ibuprofen 600 mg tablet 600 mg PO TID PRN (Reason: pain) Qty: 20 0RF No Action Natazia 3 mg/2 mg-2 mg/ 2 mg-3 mg/1 mg tablet amoxicillin-pot clavulanate [Augmentin] 500-125 mg tablet 1 tablet PO BID 5 Days Qty: 10 0RF Follow-up/Referrals: PHYSICIAN,LANDSCAPING AND GROUNDSKEEPING LABORER [Primary Care Provider] - Time of Disposition: 06:31
[2025-07-16] MEDS: SULFAMETHOXAZOLE/TRIMETHOPRIM 800/160 MG DS TABLET 1 TAB PO (06:46)
[2025-07-16 06:55] VITALS: BP 122/75; PULSE 87; RESP 16; O2SAT 100
== END 2025-07-16 06:58 | disposition home or self-care (01) ==
PROVIDERS: Emergency Provider Student in an Organized Health Care Education/Training Program
DX: N75.1 Abscess of Bartholin's gland (principal)
CPT/HCPCS: 56420; 81025; 99283; A9270

== ENCOUNTER 2025-10-22 12:51 | Emergency (ER) | payer OTHER, SELFPAY ==
[2025-10-22 12:55] VITALS: BP 145/75; PULSE 94; RESP 16; TEMP 36.7; O2SAT 100
--- NOTE | 2025-10-22 12:56 | ED_ITS ---
HPI - Ear Problem General Chief complaint: Ear Stated complaint: Ear Pain Time Seen by Provider: 10/22/25 12:55 Source: patient Mode of arrival: ambulatory Limitations: no limitations History of Present Illness HPI Narrative: patient is a 30-year-old female who presents with right ear pain and fullness. Patient has history of infections. Has not taken anything for symptoms. Denies any congestion, sore throat, cough, fever, chills MD Complaint: ear pain Related Data Home Medications ?Medication ?Instructions ?Recorded ?Confirmed ?Last Taken ?Type estradiol-dienogest 3 mg/2 mg-2 tablet 07/14/25 Unkno wn History mg/2 mg-3 mg/1 mg tablet (Natazia) Allergies Allergy/AdvReac Type Severity Reaction Status Date / Time No Known Allergies Allergy Verified 10/22/25 13:12 Review of Systems Review of Systems: All systems reviewed & are unremarkable except as noted in HPI and below Constitutional: Constitutional: Denies body ache(s), Denies chills, Denies fever(s), Denies headache(s) and Denies malaise Eyes: Eyes: Denies blurry vision, Denies eye discharge and Denies irritation ENT: Reports otalgia, Denies headache(s), Denies nasal congestion, Denies nasal discharge and Denies sore throat Cardiovascular: Cardiovascular: Denies chest pain, Denies edema, Denies palpitations and Denies dyspnea on exertion Respiratory: Respiratory: Denies cough and Denies dyspnea on exertion Gastrointestinal: Gastrointestinal: Denies abdominal pain, Denies diarrhea, Denies nausea and Denies vomiting Musculoskeletal: Musculoskeletal: Denies back pain, Denies arthralgias and Denies muscle weakness Integumentary/Breasts: Skin/Breast: Denies pruritus and Denies rash Neurologic: Denies headache(s) Psychiatric: Psychiatric: Reports no additional psychiatric complaints Endocrine: Endocrine: Denies palpitations PMFSH Comments At time of signature, agree with nursing past medical, surgical, social and family history. There is no relevant family history pertinent to the presenting complaint? Exam Const: General: cooperative, healthy appearing, no acute distress and well nourished Nutritional Appearance: well nourished Orientation/consciousness: patient oriented x3 Limitations: no limitations HENMT: Head: normal to inspection, normocephalic and atraumatic Ears: hearing grossly normal bilaterally, EAC's normal, no periauricular adenopathy and TM abnormal bulging on the right and erythematous on the right Face/Nose/Sinus: Normal external nose present, Normal nares present, Normal nasal mucous membranes and turbinates present, No nasal discharge present, normal facial exam and sinuses nontender Face and sinus: normal facial exam and sinuses nontender Mouth: Yes Normal oral and palatal mucosa present, Yes lip normal, Yes tongue normal and Yes moist mucous membranes Throat: posterior oropharynx normal, tonsils normal and uvula midline Eyes: General: appearance normal, both eyes and all related structures Alignment and Position: alignment normal and position normal Eyelids: eyelids normal Pupils: Equal, round and reactive pupils present EOM: EOMs intact bilaterally Neck: Neck: normal visual inspection, full ROM, no lymphadenopathy and supple Chest: Chest palpation & inspection: normal inspection of the chest Resp: Effort & Inspection: normal respiratory effort and able to speak in comp lete sentences Auscultation: clear to auscultation bilaterally, no crackles, no rales, no rhonchi and no wheezes Cardio: Rate: regular rate Rhythm: regular rhythm Heart sounds: S1 normal heart sound present and S2 normal heart sound present Skin: General skin exam: normal color and no rashes or lesions noted Neuro: General: patient oriented x3 and moves all extremities Cranial nerves: Yes Equal, round and reactive pupils present Cognition (Neuro): normal cognition Speech: normal speech Gait exam (Neuro): Normal gait present Extrem: General: normal to inspection and full ROM Psych: Appearance: grossly normal and well kempt Mental Status: mental status grossly normal Speech and movement: Normal speech and movement present Course Course Emergency Course: Patient is aware of diagnosis, understands and agrees to treatment plan.? Anticipatory guidance given.? Patient agrees to follow-up as directed and is aware of reasons to seek care at the emergency department.? Portions of this record may have been created with voice recognition software? Level of Care: Express Care Visit Vital Signs Vital signs: Reviewed Medical Decision Making MDM Narrative Medical decision making narrative: Pt well hydrated appearing, in no respiratory distress, hemodynamically stable. Recommend supportive care. The patient is stable at time of discharge the clinical impression was discussed and the patient was given the opportunity to ask questions, which were addressed as completely as possible given the information available at present. Anticipatory guidance and return to care precautions were discussed and the importance of primary care follow-up was stressed and encouraged. The patient voiced understanding of the plan, indications to return, and the need for follow-up. Exam findings show no acute concerns or changes Patient is appropriate for outpatient treatment and follow-up. Differential diagnosis considered: otitis media, otitis externa, otitis effusion, foreign body, cerumen impaction, viral syndrome Medical Records Medical records reviewed: Yes I reviewed the external patient's medical records. Discharge Plan Discharge Clinical Impression: Otitis media Qualifiers: Otitis media type: suppurative Chronicity: acute Laterality: right Recurrence: non-recurrent Spontaneous tympanic membrane rupture: without spontaneous rupture Qualified Code(s): H66.001 - Acute suppurative otitis media without spontaneous rupture of ear drum, right ear Patient Disposition: Home Condition: Stable Instructions: Ear Infection (GEN) Additional Instructions: Take antibiotics as directed. Recommend antihistamine such as Benadryl at night time and Zyrtec or Heide during the day until symptoms improve Flonase nasal spray, 1 spray in each nostril once daily until symptoms improve Also, recommend symptomatic treatment includes: rest, fluids, and increase humidity of the air at home. Recommend Acetaminophen as directed on the bottle to reduce fever, pain Please schedule a follow-up visit with your personal physician for further evaluation and treatment within 3-5days. If your symptoms persist, change or worsen significantly before you can contact your personal physician then please, without delay, go to the emergency department for further evaluation. Patient Language: Armenian Prescriptions: New amoxicillin 875 mg tablet 875 mg PO Q12H 7 Days Qty: 14 0RF fluticasone propionate [Flonase Allergy Relief] 50 mcg/actuation spray,suspension 1 spray intranasal DAILY Qty: 16 0RF Rx Instructions: administer into each nostril No Action Natazia 3 mg/2 mg-2 mg/ 2 mg-3 mg/1 mg tablet ibuprofen 600 mg tablet 600 mg PO TID PRN (Reason: pain) Qty: 20 0RF Follow-up/Referrals: Rene Flores MD [Physician, Family Practice] - 3 Days Stand Alone Forms: Work/School Release IP Time of Disposition: 13:20
== END 2025-10-22 13:23 | disposition home or self-care (01) ==
PROVIDERS: Emergency Provider Nurse Practitioner Family
DX: H66.001 Acute suppurative otitis media without spontaneous rupture of ear drum, right ear (principal)
CPT/HCPCS: 99213; G0463